=== PATIENT | male | born 1970 | race Caucasian/White ===

== ENCOUNTER 2017-02-04 15:09 | Day surgery (SDC) | payer OTHER ==
[~2017-02-04] VITALS: Ht 182.9 cm; Wt 81.1 kg
[~2017-02-04 15:09] MED LIST: ASCORBIC ACID500 M3 PO; LIPITOR10 MG PO; SYNTHROID100 MCG PO
[2017-02-04 16:29] LABS: HEMATOCRIT 44.6 % (38.0-50.0); MCH 30.5 PG (29.0-34.0); MCHC 33.4 G/DL (30.0-36.0); MCV 91.4 FL (86-99); PLATELET COUNT 304 K/uL (156-360); RBC DIS.WIDTH-CV 12.4 % (11.8-14.6); RBC DIS.WIDTH-SD 41.8 % (39-53); RED BLOOD COUNT 4.88 M/uL (4.00-5.50); WHITE BLOOD COUNT 6.2 K/uL (4.1-10.2)
[2017-02-04 16:41] LABS: CHLORIDE 106 mEq/L (99-109); POTASSIUM 3.8 mEq/L (3.7-5.4); SODIUM 144 mEq/L (136-147)
[2017-02-04 16:43] LABS: GLUCOSE 85 mg/dL (70-99)
[2017-02-04 16:44] LABS: ANION GAP 11 MEQ/L (2-14)
[2017-02-04 16:46] LABS: GFR ESTIMATE (CALCULATED) > 59 mL/min/
[2017-02-04 16:47] LABS: UREA NITROGEN (BUN) 15 mg/dL (9-23)
[2017-02-04] MEDS ORDERED: VALACYCLOVIR500 MG PO (17:00)
[2017-02-04 17:05] LABS: ADD MIUA? YES; BILIRUBIN NEGATIVE; BLOOD LARGE; COLOR YELLOW ((YELLOW)); GLUCOSE (STRIP) NEGATIVE; KETONES NEGATIVE; LEUKOCYTES NEGATIVE; NITRITE NEGATIVE; PROTEIN (STRIP) 30; SPECIFIC GRAVITY 1.019 (1.000-1.030); UROBILINOGEN 0.2 MG/DL (0.2-1.0)
[2017-02-04 17:30] LABS: EPITHELIAL CELLS RARE /HPF; MUCUS 2+ /LPF; RED BLOOD CELLS 20-30 /HPF (0-5); WHITE BLOOD CELLS 0-5 /HPF (0-5)
[2017-02-04 17:31] LABS: BACTERIA NONE SEEN /HPF; CASTS NONE SEEN /LPF; CRYSTALS NONE SEEN; UCUL ADDED? NO
[2017-02-04] MEDS ORDERED: PEPTO BISMOL240 ML PO (21:23)
[2017-02-05 00:17] VITALS: BP 125/86
[2017-02-05 04:23] VITALS: BP 107/64
[2017-02-05 08:26] VITALS: BP 106/52
[2017-02-05] MEDS ORDERED: PERCOCET 5/31 TABLET PO (08:57)
== END 2017-02-05 10:11 | disposition home or self-care (01) ==
LOC: EME 15:09 → SDC 22:35 → 2SOUTH 22:57 → 3EAST 02-05 00:10
PROC: 0DTJ4ZZ Resection of Appendix, Percutaneous Endoscopic Approach (ICD-10-PCS; principal; 2017-02-04)
DX: K35.80 Unspecified acute appendicitis (principal); E03.9 Hypothyroidism, unspecified; Z88.5 Allergy status to narcotic agent
CPT/HCPCS: 74177; 80048; 81003; 85027; 88304; 93005; 99281; 99285; G0378; J0131; J1100; J1170; J1650; J1885; J2175; J2405; J2543; J2710; J3010; J7030; J7120

== ENCOUNTER 2017-07-14 05:37 | Emergency (ER) | payer OTHER ==
[~2017-07-14] VITALS: Ht 182.9 cm; Wt 81.3 kg
[~2017-07-14 05:37] MED LIST changes: +PEPTO BISMOL240 ML PO; +PERCOCET 5/31 TABLET PO; +VALACYCLOVIR500 MG PO
[2017-07-14 06:00] LABS: HEMATOCRIT 44.8 % (38.0-50.0); MCHC 34.2 G/DL (30.0-36.0); MCV 90.7 FL (86-99); NRBC (%) 0.2 /100 WBC (0-0); PLATELET COUNT 283 K/uL (156-360); RBC DIS.WIDTH-CV 12.6 % (11.8-14.6); RBC DIS.WIDTH-SD 41.1 % (39-53); RED BLOOD COUNT 4.94 M/uL (4.00-5.50)
[2017-07-14 06:12] LABS: CHLORIDE 108 mEq/L (99-109); POTASSIUM 3.7 mEq/L (3.7-5.4); SODIUM 142 mEq/L (136-147)
[2017-07-14 06:14] LABS: GLUCOSE 122 mg/dL (70-99)
[2017-07-14 06:16] LABS: ANION GAP 12 MEQ/L (2-14)
[2017-07-14 06:18] LABS: GFR ESTIMATE (CALCULATED) 58 mL/min/
[2017-07-14 06:19] LABS: UREA NITROGEN (BUN) 16 mg/dL (9-23)
[2017-07-14 07:12] LABS: ADD MIUA? YES; BILIRUBIN NEGATIVE; BLOOD MODERATE; COLOR YELLOW ((YELLOW)); GLUCOSE (STRIP) NEGATIVE; KETONES 5; LEUKOCYTES NEGATIVE; NITRITE NEGATIVE; PROTEIN (STRIP) 100; SPECIFIC GRAVITY 1.025 (1.000-1.030); UROBILINOGEN 0.2 MG/DL (0.2-1.0)
[2017-07-14 07:24] LABS: BACTERIA NONE SEEN /HPF; EPITHELIAL CELLS NONE SEEN /HPF; MUCUS TRACE /LPF; RED BLOOD CELLS TNTC /HPF (0-5); UCUL ADDED? YES; WHITE BLOOD CELLS 0-5 /HPF (0-5)
[2017-07-14] MEDS ORDERED: PERCOCET 5/31 TABLET PO (08:59)
[2017-07-14] MEDS ORDERED: ZOFRAN4 MG PO (08:59)
[2017-07-14] MEDS ORDERED: MOTRIN800 MG PO (08:59)
[2017-07-14] MEDS ORDERED: FLOMAX0.4 MG PO (09:28)
[2017-07-14 10:20] VITALS: BP 123/78
== END 2017-07-14 10:21 | disposition home or self-care (01) ==
LOC: EME 05:37
PROVIDERS: Emergency Medicine
DX: N13.2 Hydronephrosis with renal and ureteral calculous obstruction (principal); Z87.442 Personal history of urinary calculi; E03.9 Hypothyroidism, unspecified; Z90.49 Acquired absence of other specified parts of digestive tract
CPT/HCPCS: 74176; 80048; 81003; 85027; 87086; 99281; 99285; J1200; J1885; J2270; J2405; J2765; J7030